=== PATIENT | female | born 1995 | race African-American/Black ===

== ENCOUNTER 2021-03-30 20:34 | Inpatient (IN) ==
[2021-03-30] MEDS ORDERED: SODIUM CHLORIDE 0.9% 1000ML 1,000 ML IV SCH (21:45)
[2021-03-30] MEDS ORDERED: MoRPHine SULFATE 4 MG/ML 1 ML CARP\\VIAL IV STA (21:45)
[2021-03-30] MEDS ORDERED: ONDANSETRON INJ 2 MG/ML 2 ML VIAL IV STA (21:45)
--- NOTE | 2021-03-30 21:49 | Emergency Department Note ---
History of Present Illness General Chief complaint: Sore Throat Stated complaint: SORE TONSIL,REDNESS,SWELLING,EAR ACHE Time Seen by Provider: 03/30/21 21:31 History of Present Illness Maximum Pain Intensity: 6 This is a 25-year-old female that presents to the emergency department via [employer] vehicle with complaints of "sore tonsil, redness, swelling, earache". The patient states that this past Thursday she began with redness to her right tonsil region. She states that she took ibuprofen to help with her pain. She has a history of tonsil stones and has been trying some warm salt water gargles but persistence of the edema continued. The patient notes that the area has been swelling more to a point where it is now painful to swallow. She also notes right ear pain. She denies any fevers, chills, nausea or vomiting. No pertinent past medical history, surgeries or allergies. She states this is strictly unilateral, right side of the throat. She has a history of peritonsillar abscess in December of this year and this was drained at [facility]. She states this feels similar. She denies any other pertinent past medical history, surgeries or allergies. Last dose of ibuprofen was at 6 PM and was 800 mg. Home Medications Medication Instructions Recorded Confirmed Type ibuprofen 800 mg tablet 800 mg PO Q6H PRN 03/30/21 03/30/21 History norgestimate 0.25 mg-ethinyl 1 tab PO QAM 03/30/21 03/30/21 History estradiol 35 mcg tablet (Milagro) Allergies Allergy/AdvReac Type Severity Reaction Status Date / Time No Known Allergies Allergy Unverified 03/30/21 20:51 Past Med/Surg History Medical History No pertinent past medical history Surgical History Hx of peritonsillar abscess drainage Social History Smoking Status: Never smoker Preferred Language: Burmese Feels Safe at Home: Yes Review of Systems A total of 10 systems reviewed and were otherwise negative Physical Exam Vital Signs Vital Signs - 24 hr 03/30/21 20:36 03/31/21 00:23 03/31/21 00:25 Temperature 37.3 C Temperature Source Temporal Artery Scan Pulse Rate 107 H 87 Pulse Rate [Finger] 90 Pulse Rhythm Regular Pulse Strength Normal Respiratory Rate 16 18 18 Respiratory Effort / Characteristics Non-Labored Respiratory Depth Normal Respiratory Pattern Regular Blood Pressure 133/86 Blood Pressure [Left Arm] 126/74 Blood Pressure Mean 101 Blood Pressure Mean [Left Arm] 91 Blood Pressure Position Sitting Blood Pressure Position [Left Arm] Pulse Oximetry 100 96 96 Oxygen Delivery Method Room Air Room Air Room Air Sepsis Recent Fever Within 48 Hours No Sepsis New/Unexplained Change in Mental Status No Sepsis Action Taken by Nursing No Action Required 03/31/21 06:15 Temperature Temperature Source Pulse Rate Pulse Rate [Finger] 75 Pulse Rhythm Pulse Strength Respiratory Rate 18 Respiratory Effort / Characteristics Respiratory Depth Respiratory Pattern Blood Pressure Blood Pressure [Left Arm] 122/76 Blood Pressure Mean Blood Pressure Mean [Left Arm] 91 Blood Pressure Position Blood Pressure Position [Left Arm] Lying Pulse Oximetry 97 Oxygen Delivery Method Room Air Sepsis Recent Fever Within 48 Hours Sepsis New/Unexplained Change in Mental Status Sepsis Action Taken by Nursing VITAL SIGNS - Vital signs and nursing notes were reviewed. Stable and afebrile. GENERAL - 25-year-old female appearing her stated age who is in no acute distress. Communicates well with provider and answers questions appropriately. SKIN - Without rashes. No meningeal or petechial rash. HEAD - NC/AT. EYES - PERRL with EOMI bilaterally. Sclera anicteric. EARS - No deformities of external structures noted on gross examination bilaterally. No pain elicited with palpation of the tragus bilaterally. External auditory canals without discharge or otorrhea. Tympanic membranes pearly kaur without retraction or bulging. No fluid or purulent material visualized behind the TM. Handle of malleus, umbo, cone of light, pars tensa/flaccid all easily visualized. NOSE - Midline and without cyanosis. No epistaxis or purulent drainage noted. Septum midline without deviation or septal hematoma noted. MOUTH/OROPHARYNX - Without perioral cyanosis. Buccal mucosa pink and moist and without leukoplakia. Tongue midline with equal elevation of palate bilaterally. There is 4+ right-sided tonsillar hypertrophy. Left tonsil 1+. Uvula is deviated to the left. Mild trismus. There is a mild muffled voice noted. No wheezing or stridor. There is edema/erythema involving the soft palate on the right, superior to the tonsil. NECK - Neck with FROM. Supple to palpation. Right greater than left anterior cervical lymphadenopathy noted. No nuchal rigidity. LUNGS - Chest wall symmetric without accessory muscle use, intercostals retractions, or central cyanosis. Normal vesicular breath sounds CTA B/L. No wheezes, rales, or rhonchi appreciated. CARDIAC - RRR with S1/S2. No murmur, rubs, or gallops appreciated. EXTREMITIES - No clubbing or peripheral cyanosis. +5/5 strength noted in UE/LE bilaterally. NEUROLOGIC - Cranial nerves II through XII grossly intact. PSYCH - A&O, and cooperates fully with examiner. Pt is very pleasant and interacts well with examiner. Course Administered Medications Sodium Chloride (Nss 1000ml) 1,000 mls @ 100 mls/hr IV .Q10H GUI Stop: 04/30/21 05:44 Last Admin: 03/31/21 06:01 Dose: 100 mls/hr Documented by: [id number] Discontinued Medications Dexamethasone Sodium Phosphate (DexamethasonePf 10 Mg/Ml Vial) 10 mg IV NOW ONE Stop: 03/31/21 00:05 Last Admin: 03/31/21 00:17 Dose: 10 mg Documented by: [id number] Sodium Chloride (Nss 1000ml) 1,000 mls @ 999 mls/hr IV .Q1H1M GUI Stop: 03/30/21 22:45 Last Infusion: 03/30/21 23:47 Dose: 0 mls/hr Documented by: [id number] Admin: 03/30/21 22:40 Dose: 999 mls/hr Documented by: [id number] Ceftriaxone Sodium (Rocephin) 1,000 mg in 50 mls @ 100 mls/hr IV NOW STA Stop: 03/31/21 00:33 Last Infusion: 03/31/21 00:59 Dose: 0 mls/hr Documented by: [id number] Admin: 03/31/21 00:17 Dose: 100 mls/hr Documented by: [id number] Ceftriaxone Sodium (Rocephin) 1,000 mg in 50 mls @ 100 mls/hr IV NOW STA Stop: 03/31/21 00:54 Last Infusion: 03/31/21 01:11 Dose: 0 mls/hr Documented by: [id number] Admin: 03/31/21 00:36 Dose: 100 mls/hr Documented by: [id number] Ioversol (Optiray 320 100ml) 94 ml IV ONCE ONE Stop: 03/30/21 23:22 Last Admin: 03/30/21 23:16 Dose: 94 ml Documented by: [id number] Morphine Sulfate (Morphine Sulfate 4 Mg/Ml 1 Ml Carp\\Vial) 4 mg IV NOW STA Stop: 03/30/21 21:46 Last Admin: 03/30/21 22:39 Dose: 4 mg Documented by: [id number] Ondansetron HCl (Ondansetron Inj 2 Mg/Ml 2 Ml Vial) 4 mg IV NOW STA Stop: 03/30/21 21:46 Last Admin: 03/30/21 22:39 Dose: 4 mg Documented by: [id number] Medical Decision Making Laboratory Data Result diagrams: 03/30/21 22:20 03/30/21 22:20 Lab Results 03/30/21 03/30/21 03/30/21 Range/Units 21:44 22:20 22:20 WBC 10.27 (4.8-10.8) K/uL RBC 4.77 (4.2-5.4) M/uL Hgb 11.4 L (12.0-16.0) g/dL Hct 35.6 L (37-47) % MCV 74.6 L (80-100) fL MCH 23.9 L (25-34) pg MCHC 32.0 (32-36) g/dL RDW Std Deviation 44.7 (36.4-46.3) fL RDW Coeff of Melissa 16.2 H (11.5-14.5) % Plt Count 336 (130-400) K/uL MPV 10.0 (7.4-10.4) fL Immature Gran % (Auto) 0.2 % Neut % (Auto) 61.5 % Lymph % (Auto) 23.9 % [place] % (Auto) 11.0 % Eos % (Auto) 3.2 % Baso % (Auto) 0.2 % Neut # (Auto) 6.32 (1.4-6.5) K/uL Lymph # (Auto) 2.45 (1.2-3.4) K/uL [place] # (Auto) 1.13 H (0.11-0.59) K/uL Eos # (Auto) 0.33 (0-0.5) K/uL Baso # (Auto) 0.02 (0-0.2) K/uL Immature Gran # (Auto) 0.02 (0.00-0.02) K/uL Sodium 139 (136-145) mmol/L Potassium 3.7 (3.5-5.1) mmol/L Chloride 105 (98-107) mmol/L Carbon Dioxide 28 (21-32) mmol/L Anion Gap 6.0 (3-11) BUN 9 (7-18) mg/dl Creatinine 0.76 (0.6-1.2) mg/dl Est Cr Clr Drug Dosing 103.0 ml/min Est GFR ( Amer) 124.6 ml/min Est GFR (Non-Af Amer) 107.5 ml/min BUN/Creatinine Ratio 11.4 (10-20) Glucose 94 (70-99) mg/dl Calcium 9.0 (8.5-10.1) mg/dl Total Bilirubin 0.2 (0.2-1) mg/dl AST 14 L (15-37) U/L ALT 23 (12-78) Alkaline Phosphatase 60 (45-117) U/L Total Protein 7.4 (6.4-8.2) gm/dl Albumin 3.1 L (3.4-5.0) gm/dl Globulin 4.3 H (2.5-4.0) gm/dl Albumin/Globulin Ratio 0.7 L (0.9-2) HCG, Qual (Negative) Monoscreen (Negative) SARS-CoV-2, RNA, NAAT (NEGATIVE) Group A Strep (PCR) DETECTED A (NotDetected) 03/30/21 03/30/21 Range/Units 22:20 22:32 WBC (4.8-10.8) K/uL RBC (4.2-5.4) M/uL Hgb (12.0-16.0) g/dL Hct (37-47) % MCV (80-100) fL MCH (25-34) pg MCHC (32-36) g/dL RDW Std Deviation (36.4-46.3) fL RDW Coeff of Melissa (11.5-14.5) % Plt Count (130-400) K/uL MPV (7.4-10.4) fL Immature Gran % (Auto) % Neut % (Auto) % Lymph % (Auto) % [place] % (Auto) % Eos % (Auto) % Baso % (Auto) % Neut # (Auto) (1.4-6.5) K/uL Lymph # (Auto) (1.2-3.4) K/uL [place] # (Auto) (0.11-0.59) K/uL Eos # (Auto) (0-0.5) K/uL Baso # (Auto) (0-0.2) K/uL Immature Gran # (Auto) (0.00-0.02) K/uL Sodium (136-145) mmol/L Potassium (3.5-5.1) mmol/L Chloride (98-107) mmol/L Carbon Dioxide (21-32) mmol/L Anion Gap (3-11) BUN (7-18) mg/dl Creatinine (0.6-1.2) mg/dl Est Cr Clr Drug Dosing ml/min Est GFR ( Amer) ml/min Est GFR (Non-Af Amer) ml/min BUN/Creatinine Ratio (10-20) Glucose (70-99) mg/dl Calcium (8.5-10.1) mg/dl Total Bilirubin (0.2-1) mg/dl AST (15-37) U/L ALT (12-78) Alkaline Phosphatase (45-117) U/L Total Protein (6.4-8.2) gm/dl Albumin (3.4-5.0) gm/dl Globulin (2.5-4.0) gm/dl Albumin/Globulin Ratio (0.9-2) HCG, Qual Negative (Negative) Monoscreen Negative (Negative) SARS-CoV-2, RNA, NAAT NEGATIVE (NEGATIVE) Group A Strep (PCR) (NotDetected) Imaging Data Radiologist's Impression: Soft Tissue Neck CT 03/30/21 21:51 CT soft tissue neck w con CLINICAL HISTORY: R tonsillar edema, concern for abscess . Sore throat and ear pain COMPARISON STUDY: No previous studies for comparison. CT DOSE: 358.10 mGy.cm TECHNIQUE: Standard CT of the Neck was performed with IV contrast. A dose lowering technique was utilized adhering to the principles of ALARA. Contrast Volume: Optiray 320, 94 ml FINDINGS: There is diffuse swelling of the tonsils bilaterally, right greater than left. There is a thick-walled enhancing abscess present of the right tonsil measuring 2.3 x 2.1 cm. There is mild encroachment upon the adjacent airway. Salivary glands: Parotid and submandibular salivary glands are within normal limits. The thyroid gland is also within normal limits. Lymph nodes: There are no pathologically enlarged lymph nodes. There is no evidence for soft tissue mass within the neck bilaterally. Airway: The remaining cervical airway is widely patent. The epiglottis and abel epiglottic folds are normal bilaterally. The vocal cords are symmetric bilaterally. Vascular structures: No gross vascular abnormalities are seen. Paranasal sinuses:There is mild mucosal thickening involving the floors of both maxillary antrum. The remaining imaged paranasal sinuses are clear. Osseous structures: No acute osseous abnormalities are identified. IMPRESSION: 1. CT confirms presence of a right tonsillar abscess with mild encroachment upon the adjacent cervical airway. 2. Chronic bilateral maxillary sinusitis. ACT 112: Negative or not required by law. Electronically signed by: Guillermo Whalen M.D. 03/30/2021 11:34 PM [facility] Narrative Patient was seen and evaluated as above in room A04. Review was performed of nursing notes and vital signs. A thorough history and physical examination was performed. Patient presents to us today with a sore throat, specifically involving the right side with edema, erythema of the right tonsil being 4+ with uvular deviation to the left. Left tonsil is mildly enlarged. There is soft palate involvement on the right. Mild trismus. No drooling. There is a mildly muffled voice. Options of care were discussed with the patient. IV access was established. Labs were drawn. She is medicated with IV fluids, IV morphine for pain, IV Zofran. Toradol was initially held as the patient did have ibuprofen just prior to arrival. CT scan was obtained of the soft tissue neck. Results as above. CT scan report per radiology reveals: "CT confirms presence of a right tonsillar abscess with mild encroachment upon the adjacent cervical airway". Labs reveal no leukocytosis. There is anemia noted with hemoglobin of 11.4. No emergent metabolic disturbance. [place] screen negative. Covid negative. Strep positive. With the patient having a history of peritonsillar abscess that was drained 2 months ago and this is feeling similar, paired with her clinical examination and CT scan findings I did find this reasonable to discussed this with the on-call ENT surgeon. The ED attending physician also evaluated the patient. Please refer to his documentation regarding conversation with the ENT specialist. At this time I do believe that the patient with the edema to the right tonsil, uvular deviation, and mild encroachment upon the adjacent cervical airway by CT imaging paired with clinical assessment, that further evaluation and management the inpatient setting is warranted. While here the patient was medicated with 2 g of IV Rocephin, 10 mg IV Decadron and IV fluids. Case discussed with the spitalist. Please refer to further documentation regarding her stay. Case was discussed with the attending physician. GCS: 15 In the evaluation and treatment of this patient the following differential diagnoses were entertained: Strep pharyngitis, viral pharyngitis, allergic rhinitis with post nasal drip, airway obstruction, head/neck neoplasias, GERD, peritonisllar abscess, epiglottitis, hjol-pkkd-tpc-mouth disease, herpes simplex, mononucleosis, pneumonia, retropharyngeal abscess, scarlet fever, among others. Impression & Plan Tonsillar abscess, Acute sore throat, Acute streptococcal tonsillitis Discharge Plan Visit Data Chief Complaint: Sore Throat Stated Complaint: SORE TONSIL,REDNESS,SWELLING,EAR ACHE ED Provider: Bhupinder Lim ED Midlevel Provider: Thomas Zuniga Discharge Problem: Tonsillar abscess, Acute sore throat, Acute streptococcal tonsillitis Patient Disposition: Admitted As Inpatient Condition: Good Forms Stand Alone Forms: My [employer] Prescriptions Prescriptions: No Action norgestimate-ethinyl estradiol [Milagro] 0.25-35 mg-mcg Tablet 1 tab PO QAM RF: 0 ibuprofen 800 mg Tablet 800 mg PO Q6H PRN (Reason: Pain) RF: 0 Referrals Referrals: PCP,NO [Primary Care Provider] -
[2021-03-30 22:36] LABS: Basophils # (auto) 0.02 K/uL (0-0.2); Basophils % (auto) 0.2 %; Eosinophils # (auto) 0.33 K/uL (0-0.5); Eosinophils % (auto) 3.2 %; Hematocrit (blood only) 35.6 % (37-47); Hemoglobin 11.4 g/dL (12.0-16.0); Immature Granulocytes # (auto) 0.02 K/uL (0.00-0.02); Immature Granulocytes % (auto) 0.2 %; Lymphocytes # (auto) 2.45 K/uL (1.2-3.4); Lymphocytes % (auto) 23.9 %; Mean Corpuscular Hemoglobin 23.9 pg (25-34); Mean Corpuscular Volume 74.6 fL (80-100); Monocytes # (auto) 1.13 K/uL (0.11-0.59); Neutrophils # (auto) 6.32 K/uL (1.4-6.5); Neutrophils % (auto) 61.5 %; Platelet Count 336 K/uL (130-400); RDW Coefficient of Variation 16.2 % (11.5-14.5); RDW Standard Deviation 44.7 fL (36.4-46.3); Red Blood Count 4.77 M/uL (4.2-5.4); White Blood Count 10.27 K/uL (4.8-10.8)
[2021-03-30 22:54] LABS: Albumin Level 3.1 gm/dl (3.4-5.0); BUN Creatinine Ratio 11.4 (10-20); Est GFR (African American) 124.6 ml/min; Est GFR (Non-African American) 107.5 ml/min; Potassium 3.7 mmol/L (3.5-5.1)
[2021-03-30 22:56] LABS: Albumin Globulin Ratio 0.7 (0.9-2); Bilirubin,Total 0.2 mg/dl (0.2-1); Globulin 4.3 gm/dl (2.5-4.0); Total Protein 7.4 gm/dl (6.4-8.2)
[2021-03-30 22:57] LABS: Monotest Negative (Negative); Pregnancy Test, Serum Negative (Negative)
[2021-03-30] MEDS ORDERED: OPTIRAY 320 100ml IV ONE (23:21)
--- NOTE | 2021-03-30 23:36 | CT Scan Report ---
CT soft tissue neck w con CLINICAL HISTORY: R tonsillar edema, concern for abscess . Sore throat and ear pain COMPARISON STUDY: No previous studies for comparison. CT DOSE: 358.10 mGy.cm TECHNIQUE: Standard CT of the Neck was performed with IV contrast. A dose lowering technique was ut ilized adhering to the principles of ALARA. Contrast Volume: Optiray 320, 94 ml FINDINGS: There is diffuse swelling of the tonsils bilaterally, right greater than left. There is a t hick-walled enhancing abscess present of the right tonsil measuring 2.3 x 2.1 cm. There is mild encro achment upon the adjacent airway. Salivary glands: Parotid and submandibular salivary glands are within normal limits. The thyroid gland is also within normal limits. Lymph nodes: There are no pathologically enlarged lymph nodes. There is no evidence for soft tissue mass within the neck bilaterally. Airway: The remaining cervical airway is widely patent. The epiglottis and aryepiglottic folds are n ormal bilaterally. The vocal cords are symmetric bilaterally. Vascular structures: No gross vascular abnormalities are seen. Paranasal sinuses:There is mild mucosal thickening involving the floors of both maxillary antrum. The remaining imaged paranasal sinuses are clear. Osseous structures: No acute osseous abnormalities are identified. IMPRESSION: 1. CT confirms presence of a right tonsillar abscess with mild encroachment upon the adjacent cervica l airway. 2. Chronic bilateral maxillary sinusitis. ACT 112: Negative or not required by law. Electronically signed by: Guillermo Whalen M.D. 03/30/2021 11:34 PM
[2021-03-31] MEDS ORDERED: cefTRIAXone SODIUM 1,000 MG/50 ML BAG IV STA ×2 (00:04→00:25)
[2021-03-31] MEDS ORDERED: dexAMETHasone**PF** 10 MG/ML VIAL IV ONE (00:04)
--- NOTE | 2021-03-31 00:04 | Emergency Department Note ---
ED Visit Note Physician Evaluation Note: I have personally evaluated and examined this patient. I agree with assessment and plan of Thomas Zuniga PA-C. Very pleasant 25-year-old female with no significant past medical history other than an episode 3 months ago when she had a tonsillar abscess that needed to be drained at [facility] followed by brief hospitalization. Patient states she was feeling well throughout the last few months until Thursday when she noted her throat started to get sore this had rapidly gotten worse over the last few days and she arrived for swelling of the right tonsil. Initially seen by Thomas who diagnosed patient with strep tonsillitis and a 2 cm right peritonsillar abscess via CT read by radiologist. I evaluated the patient and I will note that her tonsils are quite large and touching by visual exam, however she is tolerating secretions and breathing comfortably. By CT she does seem to have a patent airway from that perspective as well. She was given 2 g of IV Rocephin and 10 mg of IV Decadron. I discussed the case with the on-call ENT Dr. Jose Miguel Hagen who reviewed the scans and feels the abscess is too small for drainage at this time. Given the swelling on my examination I felt that monitoring patient throughout the night would be indicated. In the morning the patient was reevaluated and while she states she feels slightly better her tonsils do not look any bit improved. Given the degree of the swelling I discussed again with Dr Hagen (on the phone) who notes her read is an abscess of 7 to 8 mm and that it would not be drainable at this point. She feels there is no indication for her to evaluate the patient at bedside at this time. As ENT does not feel that this is a drainable abscess at this time, we will hospitalize the patient for IV antibiotics and steroids and further monitoring of her airway. Patient is comfortable with this plan. Bhupinder Lim MD
[2021-03-31] MEDS: SODIUM CHLORIDE 0.9% 1000ML 1,000 ML IV SCH ×2 (06:01→16:22)
--- NOTE | 2021-03-31 07:52 | History & Physical Report ---
Date of Service March 31, 2021 Assessment & Plan (1) Tonsillar abscess: Plan: Due to the patient's clinical history along with the performed and her physical exam findings she will be admitted to the hospital proceeding as follows: We will maintain the patient on antibiotics, however we will change her to Unasyn 3000 mg intravenously every 6 hours. We will continue intravenous Decadron at 4 mg IV every 6 hours We will continue hydration with IV fluids We will follow serial labs Analgesics will be provided Antiemetics will be provided As ENT has already reviewed the imaging performed by the emergency department and did not feel there was a drainable abscess at this time we will hold on a formal ENT consultation, however if patient demonstrates signs or symptoms of worsening tonsillar abscess or clinically deteriorates or if the patient does not clinically improve in a reasonable amount of time we will ask ENT for formal consultation At the present time the patient appears quite comfortable. There is no evidence of airway compromise. Additional recommendations will be forthcoming based on her clinical course as it unfolds We will use SCDs for DVT prevention. We will avoid chemical means for the present time until we are certain no procedures such as I&D of a tonsillar abscess will be required this admission Patient be a level 1 full code (2) Acute streptococcal tonsillitis: Plan: +Rapid strep in ER, tx as above (3) Anemia: Plan: Microcytic, mild f/u with PCP as outpt Plan: DVT proph-SCDs Dispo-admit to med/surg History of Present Illness Chief Complaint: "I have a sore throat" Primary Care Provider: NO PCP This is a 25-year-old female who resides in [place], [place] who is in [place] visiting some family. Patient notes that in December of this year she had a peritonsillar abscess that required drainage and this was performed at [facility] in [place]. Patient states she did not have any apparent complications from this procedure and was initially doing well up until her presentation at this time. Approximately 1 week ago the patient noted that her throat began to appear erythematous on the right side. She also noted some increased soreness of her throat on the right side She said she took some Motrin and also tried some salt water gargles but over the ensuing week her throat became more sore and painful. She also noted some dysphagia. She has not had any shortness of breath or fever. Because of her previous episode of a peritonsillar abscess being drained and the ongoing and worsening pain she felt that she should be evaluated in the emergency department. Today in the emergency department the patient did have labs and imaging which I independently reviewed. She did have a CT scan of the neck that showed diffuse swelling of the tonsils bilaterally however the right was noted to be greater than the left. The presence of a right tonsillar abscess with mild encroachment upon upon her airway was noted. This abscess was measured at approximately 2.3 x 2.1 cm. She was noted to have findings consistent with chronic bilateral maxillary sinusitis. The epiglottis appeared normal on the study. A CBC revealed white blood cell count was within normal range. Hemoglobin and hematocrit were 11.4 35.6. Platelet count was within normal range. Chemistry profile showed sodium, potassium, BUN, and creatinine were all within normal range. A test was negative. Patient was tested for Covid which was negative. A mono test was noted to be negative and patient was tested for group A strep which was positive. The treating emergency room physician did talk to Dr. Hagen of ENT who did not feel that there was any drainable abscess after her review of the CT scan. Thus far in the emergency department the patient has been given some intravenous fluids. She has been given 10 mg of intravenous Decadron. She has also been given antibiotics in the form of Rocephin. At the time of my interview she is resting comfortably in bed. She was not short of breath and she was in no distress. Allergies Allergy/AdvReac Type Severity Reaction Status Date / Time No Known Allergies Allergy Unverified 03/30/21 20:51 Home Medications Medication Instructions Recorded Confirmed Type ibuprofen 800 mg tablet 800 mg PO Q6H PRN 03/30/21 03/30/21 History norgestimate 0.25 mg-ethinyl 1 tab PO QAM 03/30/21 03/30/21 History estradiol 35 mcg tablet (Milagro) Past Med/Surg History Medical History (Updated 03/31/21 @ 14:59 by Monse Sosa MD) Anemia No pertinent past medical history Surgical History Hx of peritonsillar abscess drainage Family History Other Family history non-contributory Social History Smoking Status: Never smoker Second Hand Exposure: No; Do You Dip or Chew Tobacco: No; Tobacco Cessation Education Requested by Patient: No Hx Alcohol Use: No Hx Substance Use: No Preferred Language: Honduran Communication Ability: Effective Interventional Radiology Technologist Required: No Beliefs That Will Affect Care: None Current Living Situation: Alone Other Information That Helps Us Care for You: No Feels Safe at Home: Yes Safety Concerns: Feels Safe At This Time Assistive Devices: None Review of Systems Constitutional: no fever and no chills Eyes: no diplopia Ear, Nose, Mouth, Throat: as per Subjective / HPI, + sore throat and + dysp hagia; no ear pain Respiratory: no cough and no dyspnea Cardiovascular: no chest pain Gastrointestinal: no abdominal pain, no nausea and no vomiting Genitourinary: no dysuria Musculoskeletal: no back pain Integumentary: no rash Neurologic: no localized weakness Physical Exam Constitutional: well developed and well nourished; no acute distress Eyes: PERRL, conjunctivae normal, anicteric sclerae ENMT: Ears: no hearing impairment and no external ear abnormality Patient was noted to have bilateral tonsillar hypertrophy, however this appeared to be greater on the right. The tonsils were noted to be erythematous and inflamed, again greater on the right side. There not appear to be any purulence draining from her tonsils. There is no evidence of airway compromise as the tonsils did not touch in midline. There was no stridor or evidence of airway compromise. No trismus noted. No drooling noted. Neck: trachea midline No adenopathy. No nuchal rigidity. Respiratory: normal respiratory effort, lungs clear to auscultation Patient was not using accessory muscles to aid in respiration. She was able to maintain a normal conversation without becoming dyspneic. No stridor was appreciated. Cardiovascular: Rate/Rhythm: regular rate and regular rhythm Gastrointestinal (Abdomen): Soft, nontender, nondistended Musculoskeletal: No calf tenderness Skin: no rashes Neurologic: moves all extremities Psychiatric: A+Ox3, euthymic affect Results & Data Results & Data ([facility]) Vital Signs (Past 12 Hours) Vital Signs Temp Pulse Pulse Resp BP BP Pulse Ox 03/31/21 06:15 75 18 122/76 97 03/31/21 00:25 87 18 96 03/31/21 00:23 90 18 126/74 96 03/30/21 20:36 37.3 C 107 H 16 133/86 100 Laboratory Results 03/30/21 03/30/21 03/30/21 Range/Units 22:32 22:20 22:20 WBC (4.8-10.8) K/uL RBC (4.2-5.4) M/uL Hgb (12.0-16.0) g/dL Hct (37-47) % MCV (80-100) fL MCH (25-34) pg MCHC (32-36) g/dL RDW Std Deviation (36.4-46.3) fL RDW Coeff of Melissa (11.5-14.5) % Plt Count (130-400) K/uL MPV (7.4-10.4) fL Immature Gran % (Auto) % Neut % (Auto) % Lymph % (Auto) % [place] % (Auto) % Eos % (Auto) % Baso % (Auto) % Neut # (Auto) (1.4-6.5) K/uL Lymph # (Auto) (1.2-3.4) K/uL [place] # (Auto) (0.11-0.59) K/uL Eos # (Auto) (0-0.5) K/uL Baso # (Auto) (0-0.2) K/uL Immature Gran # (Auto) (0.00-0.02) K/uL Sodium 139 (136-145) mmol/L Potassium 3.7 (3.5-5.1) mmol/L Chloride 105 (98-107) mmol/L Carbon Dioxide 28 (21-32) mmol/L Anion Gap 6.0 (3-11) BUN 9 (7-18) mg/dl Creatinine 0.76 (0.6-1.2) mg/dl Est Cr Clr Drug Dosing 103.0 ml/min Est GFR ( Amer) 124.6 ml/min Est GFR (Non-Af Amer) 107.5 ml/min BUN/Creatinine Ratio 11.4 (10-20) Glucose 94 (70-99) mg/dl Calcium 9.0 (8.5-10.1) mg/dl Total Bilirubin 0.2 (0.2-1) mg/dl AST 14 L (15-37) U/L ALT 23 (12-78) Alkaline Phosphatase 60 (45-117) U/L Total Protein 7.4 (6.4-8.2) gm/dl Albumin 3.1 L (3.4-5.0) gm/dl Globulin 4.3 H (2.5-4.0) gm/dl Albumin/Globulin Ratio 0.7 L (0.9-2) HCG, Qual Negative (Negative) Monoscreen Negative (Negative) SARS-CoV-2, RNA, NAAT NEGATIVE (NEGATIVE) Group A Strep (PCR) (NotDetected) 03/30/21 03/30/21 Range/Units 22:20 21:44 WBC 10.27 (4.8-10.8) K/uL RBC 4.77 (4.2-5.4) M/uL Hgb 11.4 L (12.0-16.0) g/dL Hct 35.6 L (37-47) % MCV 74.6 L (80-100) fL MCH 23.9 L (25-34) pg MCHC 32.0 (32-36) g/dL RDW Std Deviation 44.7 (36.4-46.3) fL RDW Coeff of Melissa 16.2 H (11.5-14.5) % Plt Count 336 (130-400) K/uL MPV 10.0 (7.4-10.4) fL Immature Gran % (Auto) 0.2 % Neut % (Auto) 61.5 % Lymph % (Auto) 23.9 % Tompkins % (Auto) 11.0 % Eos % (Auto) 3.2 % Baso % (Auto) 0.2 % Neut # (Auto) 6.32 (1.4-6.5) K/uL Lymph # (Auto) 2.45 (1.2-3.4) K/uL Tom[place]kins # (Auto) 1.13 H (0.11-0.59) K/uL Eos # (Auto) 0.33 (0-0.5) K/uL Baso # (Auto) 0.02 (0-0.2) K/uL Immature Gran # (Auto) 0.02 (0.00-0.02) K/uL Sodium (136-145) mmol/L Potassium (3.5-5.1) mmol/L Chloride (98-107) mmol/L Carbon Dioxide (21-32) mmol/L Anion Gap (3-11) BUN (7-18) mg/dl Creatinine (0.6-1.2) mg/dl Est Cr Clr Drug Dosing ml/min Est GFR ( Amer) ml/min Est GFR (Non-Af Amer) ml/min BUN/Creatinine Ratio (10-20) Glucose (70-99) mg/dl Calcium (8.5-10.1) mg/dl Total Bilirubin (0.2-1) mg/dl AST (15-37) U/L ALT (12-78) Alkaline Phosphatase (45-117) U/L Total Protein (6.4-8.2) gm/dl Albumin (3.4-5.0) gm/dl Globulin (2.5-4.0) gm/dl Albumin/Globulin Ratio (0.9-2) HCG, Qual (Negative) Monoscreen (Negative) SARS-CoV-2, RNA, NAAT (NEGATIVE) Group A Strep (PCR) DETECTED A (NotDetected) Diagnostic Findings Soft Tissue Neck CT 03/30/21 21:51 CT soft tissue neck w con CLINICAL HISTORY: R tonsillar edema, concern for abscess . Sore throat and ear pain COMPARISON STUDY: No previous studies for comparison. CT DOSE: 358.10 mGy.cm TECHNIQUE: Standard CT of the Neck was performed with IV contrast. A dose lowering technique was utilized adhering to the principles of ALARA. Contrast Volume: Optiray 320, 94 ml FINDINGS: There is diffuse swelling of the tonsils bilaterally, right greater than left. There is a thick-walled enhancing abscess present of the right tonsil measuring 2.3 x 2.1 cm. There is mild encroachment upon the adjacent airway. Salivary glands: Parotid and submandibular salivary glands are within normal limits. The thyroid gland is also within normal limits. Lymph nodes: There are no pathologically enlarged lymph nodes. There is no evidence for soft tissue mass within the neck bilaterally. Airway: The remaining cervical airway is widely patent. The epiglottis and aryepiglottic folds are normal bilaterally. The vocal cords are symmetric bilaterally. Vascular structures: No gross vascular abnormalities are seen. Paranasal sinuses:There is mild mucosal thickening involving the floors of both maxillary antrum. The remaining imaged paranasal sinuses are clear. Osseous structures: No acute osseous abnormalities are identified. IMPRESSION: 1. CT confirms presence of a right tonsillar abscess with mild encroachment upon the adjacent cervical airway. 2. Chronic bilateral maxillary sinusitis. ACT 112: Negative or not required by law. Electronically signed by: Guillermo Whalen M.D. 03/30/2021 11:34 PM Code Status & VTE Plan VTE Prophylaxis Plan VTE Prophylaxis will be ordered: Yes Supervising Physician Co-Signing Physician Notes PA Supervision Note: I personally saw and examined the patient. I verified all ruelas points and agree with PA Horseheads with the following exceptions and/or additions: Pt is a 25 yo healthy female with a h/o previous FLOWER PICKER 3 months ago who presents with worsening sore throat and difficulty swallowing, no fevers. FOund to have Strep throat and right FLOWER PICKER on CT in ER. Labs otehrwise unremarkable except chronic appearing anemia History and ROS reviewed-had right ear pain as well, no diarrhea or abd pains, no CP or SOB Vitals reviewed NAD, AAOx3 anicteric sclerae, Right TM normal appearing, posterior OP with R>>L tonsillar hypertrophy with uvula touching tonsil, mild muffled voice Neck +mild TTP over right anterior cervical KEON shotty, supple CTAB no wcr RRR no mgr Abd +BS soft NT Ext no edema Skin no rashes Labs and Rads images personally reviewed by me A/P: 25 yo female here with right FLOWER PICKER, Step pharyngitis -continue IV abx, Decadron hopeful that can be discharged to home tomrorow on po Augmentin and po Medrol dose pack with close outpt f/u with ENT in [facility] where she lives and was seen previously with her last FLOWER PICKER -needs outpt f/u on anemia PG Care Time/CCT Total # of Minutes Spent Total Time Spent with Patient: Total time spent is greater than 50% in coordination of care (as documented) at patient's floor/unit and/or counseling patient: Coding Level of Care Code 96281 Initial Inpt Care Lvl 3 Diagnoses Tonsillar abscess J36 Acute streptococcal tonsillitis J03.00 Anemia D64.9
[2021-03-31] MEDS ORDERED: ONDANSETRON INJ 2 MG/ML 2 ML VIAL IV PRN (10:11)
[2021-03-31] MEDS ORDERED: KETOROLAC TROMETHAMINE 15 MG/ML VIAL IV PRN (10:11)
[2021-03-31] MEDS ORDERED: ACETAMINOPHEN 1,000 MG/100 ML VIAL IV PRN (10:11)
[2021-03-31] MEDS: dexAMETHasone 4 MG in SYRINGE 0 ML IV SCH ×3 (10:59→22:29)
[2021-03-31] MEDS: NORGESTIMATE/ETHINYL ESTRAD 0.25/0.035MG DSPK PO SCH (10:59)
[2021-03-31] MEDS: AMPICILLIN/SULBACTAM SOD 3,000 MG in 0.9 % SODIUM CHLORIDE 100 ML IV SCH ×3 (10:59→22:30)
[2021-04-01] MEDS: SODIUM CHLORIDE 0.9% 1000ML 1,000 ML IV SCH (02:19)
[2021-04-01] MEDS: dexAMETHasone 4 MG in SYRINGE 0 ML IV SCH ×2 (04:01→10:42)
[2021-04-01] MEDS: AMPICILLIN/SULBACTAM SOD 3,000 MG in 0.9 % SODIUM CHLORIDE 100 ML IV SCH (04:01)
[2021-04-01 06:50] LABS: Basophils # (auto) 0.01 K/uL (0-0.2); Basophils % (auto) 0.1 %; Hematocrit (blood only) 35.7 % (37-47); Hemoglobin 11.5 g/dL (12.0-16.0); Immature Granulocytes # (auto) 0.07 K/uL (0.00-0.02); Immature Granulocytes % (auto) 0.5 %; Lymphocytes # (auto) 1.46 K/uL (1.2-3.4); Lymphocytes % (auto) 9.6 %; Mean Corpuscular Hemoglobin 23.5 pg (25-34); Mean Corpuscular Hgb Conc 32.2 g/dL (32-36); Mean Platelet Volume 9.9 fL (7.4-10.4); Monocytes % (auto) 2.6 %; Neutrophils # (auto) 13.24 K/uL (1.4-6.5); Neutrophils % (auto) 87.2 %; Platelet Count 299 K/uL (130-400); RDW Coefficient of Variation 16.1 % (11.5-14.5); RDW Standard Deviation 43.4 fL (36.4-46.3); Red Blood Count 4.89 M/uL (4.2-5.4); White Blood Count 15.18 K/uL (4.8-10.8)
[2021-04-01 07:21] LABS: BUN Creatinine Ratio 7.5 (10-20); Calcium 8.9 mg/dl (8.5-10.1); Creatinine Clr Calc Pharmacy 108.8 ml/min; Est GFR (Non-African American) 114.8 ml/min; Potassium 3.8 mmol/L (3.5-5.1)
[2021-04-01] MEDS: NORGESTIMATE/ETHINYL ESTRAD 0.25/0.035MG DSPK PO SCH (09:27)
--- NOTE | 2021-04-01 13:02 | Discharge Summary ---
Date of Service April 01, 2021 Admission HPI Per Admitting Provider This is a 25-year-old female who resides in [place], [place] who is in [place] visiting some family. Patient notes that in December of this year she had a peritonsillar abscess that required drainage and this was performed at [facility] in [place]. Patient states she did not have any apparent complications from this procedure and was initially doing well up until her presentation at this time. Approximately 1 week ago the patient noted that her throat began to appear erythematous on the right side. She also noted some increased soreness of her throat on the right side She said she took some Motrin and also tried some salt water gargles but over the ensuing week her throat became more sore and painful. She also noted some dysphagia. She has not had any shortness of breath or fever. Because of her previous episode of a peritonsillar abscess being drained and the ongoing and worsening pain she felt that she should be evaluated in the emergency department. Today in the emergency department the patient did have labs and imaging which I independently reviewed. She did have a CT scan of the neck that showed diffuse swelling of the tonsils bilaterally however the right was noted to be greater than the left. The presence of a right tonsillar abscess with mild encroachment upon upon her airway was noted. This abscess was measured at approximately 2.3 x 2.1 cm. She was noted to have findings consistent with chronic bilateral maxillary sinusitis. The epiglottis appeared normal on the study. A CBC revealed white blood cell count was within normal range. Hemoglobin and hematocrit were 11.4 35.6. Platelet count was within normal range. Chemistry profile showed sodium, potassium, BUN, and creatinine were all within normal range. A test was negative. Patient was tested for Covid which was negative. A mono test was noted to be negative and patient was tested for group A strep which was positive. The treating emergency room physician did talk to Dr. Hagen of ENT who did not feel that there was any drainable abscess after her review of the CT scan. Thus far in the emergency department the patient has been given some intravenous fluids. She has been given 10 mg of intravenous Decadron. She has also been given antibiotics in the form of Rocephin. At the time of my interview she is resting comfortably in bed. She was not shor t of breath and she was in no distress. Principal Diagnosis Streptococcal pharyngitis with peritonsillar abscess Discharge Exam Constitutional WD/WN, vitals as above Eyes + anicteric sclerae ENMT Right tonsil enlarged with uvula touching but swelling much improved from previous, mild erythema, no exudate, airway widely patent Neck trachea midline, no thyromegaly (mild right sided cervical KEON palpable, nontender) Respiratory normal respiratory effort, lungs clear to auscultation Cardiovascular RRR, no murmur, no edema Chest (Breasts) Chest: normal inspection of chest Gastrointestinal (Abdomen) normal bowel sounds, soft, nontender, no hepatosplenomegaly Musculoskeletal Extremities: extremities normal to inspection; no cyanosis and no clubbing Skin no rashes, warm and dry Neurologic moves all extremities and awake; no focal motor deficits Psychiatric A+Ox3, euthymic affect Lymphatic no lymphedema Discharge Data Allergies Allergy/AdvReac Type Severity Reaction Status Date / Time No Known Allergies Allergy Unverified 03/30/21 20:51 Consultations 03/31/21 07:30 ED Decision to Admit Stat Ordered Studies 03/30/21 21:51 CT soft tissue neck w con Stat Laboratory Results WBC 15.18 K/uL (4.8-10.8) H 04/01/21 06:35 RBC 4.89 M/uL (4.2-5.4) 04/01/21 06:35 Hgb 11.5 g/dL (12.0-16.0) L 04/01/21 06:35 Hct 35.7 % (37-47) L 04/01/21 06:35 MCV 73.0 fL (80-100) L 04/01/21 06:35 MCH 23.5 pg (25-34) L 04/01/21 06:35 MCHC 32.2 g/dL (32-36) 04/01/21 06:35 RDW Std Deviation 43.4 fL (36.4-46.3) 04/01/21 06:35 RDW Coeff of Melissa 16.1 % (11.5-14.5) H 04/01/21 06:35 Plt Count 299 K/uL (130-400) 04/01/21 06:35 MPV 9.9 fL (7.4-10.4) 04/01/21 06:35 Immature Gran % (Auto) 0.5 % 04/01/21 06:35 Neut % (Auto) 87.2 % 04/01/21 06:35 Lymph % (Auto) 9.6 % 04/01/21 06:35 [place] % (Auto) 2.6 % 04/01/21 06:35 Eos % (Auto) 0.0 % 04/01/21 06:35 Baso % (Auto) 0.1 % 04/01/21 06:35 Neut # (Auto) 13.24 K/uL (1.4-6.5) H 04/01/21 06:35 Lymph # (Auto) 1.46 K/uL (1.2-3.4) 04/01/21 06:35 [place] # (Auto) 0.40 K/uL (0.11-0.59) 04/01/21 06:35 Eos # (Auto) 0.00 K/uL (0-0.5) 04/01/21 06:35 Baso # (Auto) 0.01 K/uL (0-0.2) 04/01/21 06:35 Immature Gran # (Auto) 0.07 K/uL (0.00-0.02) H 04/01/21 06:35 Sodium 138 mmol/L (136-145) 04/01/21 06:35 Potassium 3.8 mmol/L (3.5-5.1) 04/01/21 06:35 Chloride 108 mmol/L (98-107) H 04/01/21 06:35 Carbon Dioxide 25 mmol/L (21-32) 04/01/21 06:35 Anion Gap 5.0 (3-11) 04/01/21 06:35 BUN 5 mg/dl (7-18) L 04/01/21 06:35 Creatinine 0.72 mg/dl (0.6-1.2) 04/01/21 06:35 Est Cr Clr Drug Dosing 108.8 ml/min 04/01/21 06:35 Est GFR ( Amer) 133.0 ml/min 04/01/21 06:35 Est GFR (Non-Af Amer) 114.8 ml/min 04/01/21 06:35 BUN/Creatinine Ratio 7.5 (10-20) L 04/01/21 06:35 Glucose 168 mg/dl (70-99) H 04/01/21 06:35 Calcium 8.9 mg/dl (8.5-10.1) 04/01/21 06:35 Total Bilirubin 0.2 mg/dl (0.2-1) 03/30/21 22:20 AST 14 U/L (15-37) L 03/30/21 22:20 ALT 23 (12-78) 03/30/21 22:20 Alkaline Phosphatase 60 U/L (45-117) 03/30/21 22:20 Total Protein 7.4 gm/dl (6.4-8.2) 03/30/21 22:20 Albumin 3.1 gm/dl (3.4-5.0) L 03/30/21 22:20 Globulin 4.3 gm/dl (2.5-4.0) H 03/30/21 22:20 Albumin/Globulin Ratio 0.7 (0.9-2) L 03/30/21 22:20 HCG, Qual Negative (Negative) 03/30/21 22:20 Monoscreen Negative (Negative) 03/30/21 22:20 SARS-CoV-2, RNA, NAAT NEGATIVE (NEGATIVE) 03/30/21 22:32 Group A Strep (PCR) DETECTED (NotDetected) A 03/30/21 21:44 Impressions Soft Tissue Neck CT 03/30/21 21:51 CT soft tissue neck w con CLINICAL HISTORY: R tonsillar edema, concern for abscess . Sore throat and ear pain COMPARISON STUDY: No previous studies for comparison. CT DOSE: 358.10 mGy.cm TECHNIQUE: Standard CT of the Neck was performed with IV contrast. A dose lowering technique was utilized adhering to the principles of ALARA. Contrast Volume: Optiray 320, 94 ml FINDINGS: There is diffuse swelling of the tonsils bilaterally, right greater than left. There is a thick-walled enhancing abscess present of the right tonsil measuring 2.3 x 2.1 cm. There is mild encroachment upon the adjacent airway. Salivary glands: Parotid and submandibular salivary glands are within normal limits. The thyroid gland is also within normal limits. Lymph nodes: There are no pathologically enlarged lymph nodes. There is no evidence for soft tissue mass within the neck bilaterally. Airway: The remaining cervical airway is widely patent. The epiglottis and aryepiglottic folds are normal bilaterally. The vocal cords are symmetric bilaterally. Vascular structures: No gross vascular abnormalities are seen. Paranasal sinuses:There is mild mucosal thickening involving the floors of both maxillary antrum. The remaining imaged paranasal sinuses are clear. Osseous structures: No acute osseous abnormalities are identified. IMPRESSION: 1. CT confirms presence of a right tonsillar abscess with mild encroachment upon the adjacent cervical airway. 2. Chronic bilateral maxillary sinusitis. ACT 112: Negative or not required by law. Electronically signed by: Guillermo Whalen M.D. 03/30/2021 11:34 PM Hospital Course (1) Tonsillar abscess: As ENT has already reviewed the imaging performed by the emergency department and did not feel there was a drainable abscess at this time we will hold on a formal ENT consultation At the present time the patient appears quite comfortable. There is no evidence of airway compromise. Admitted and given IVFs, IV Unasyn 3000 mg intravenously every 6 hours, and IV Decadron Pain, swelling of throat/tonsils much improved by the next day Able to swallow, tolerating full liquids diet without difficulty, remains afebrile WBC count 15k on day of dc due to steroid use Stable for dc to home with po Augmentin x 8 more days, Medrol dose pack, and she will f/u with PCP and ENT in [place]. Tylenol prn pain (2) Acute streptococcal tonsillitis: +Rapid strep in ER, tx as above (3) Anemia: Microcytic, mild f/u with PCP as outpt DVT proph-SCDs Dispo-stable for dc to home Total Time Total Time Spent Total Time Spent (In Minutes): 35 min Discharge Plan Discharge Items Patient Disposition: Home - Self-Care Reason For Visit: TONSILLAR ABSCESS Discharge Diagnosis: Peritonsillar abscess Condition on Discharge: Good Activity: Resume your previous activity Non-emergency contact: Primary Care Provider Call non-emergency contact if: you have any medication questions, your symptoms worsen, your pain is not controlled and you have a fever Follow-up/Referrals: PCP,NO [Primary Care Provider] - Diet: Regular Diet Texture: Dental soft (bite-sized) Addtl Attending Provider Instructions: Please continue the antibiotic called Augmentin twice a day x 8 more days for your tonsil infection. You should also continue to take the steroid in the form of a Medrol Dose pack to reduce swelling. You can take Tylenol as needed for pain. Please follow up with your PCP in [place] and get a referral back to the ENT Surgeon within the week. If your pain worsens or you have difficulty breathing, please return to the hospital. Of note, you were found to be slightly anemic here (low hemoglobin/red blood cells). Follow up with your primary care doctor concerning this. Pending Studies at Discharge: No Stand-Alone Forms: My [facility] [address] Medications and DC Order Prescriptions: New amoxicillin-pot clavulanate [Augmentin] 875-125 mg tablet 1 tab PO BID Qty: 16 RF: 0 methylprednisolone [Medrol (Irving)] 4 mg tablets,dose pack See Rx Instructions .ROUTE .COMPLEX Qty: 21 RF: 0 Continued norgestimate-ethinyl estradiol [Milagro] 0.25-35 mg-mcg Tablet 1 tab PO QAM RF: 0 Discontinued ibuprofen 800 mg Tablet 800 mg PO Q6H PRN (Reason: Pain) RF: 0 Discharge Orders: Discharge Order (Routine); Ordered 04/01/21 Ordered By: Monse Sosa Admission Data Admit Date/Time: 03/31/21 07:59 Attending Provider: Monse Sosa Admit Provider: Noel Saleem Primary Care Provider: PCP,NO Other Providers: Monse Sosa Coding Level of Care Code D/C DAY MANAGEMENT >30 MINS Diagnoses Tonsillar abscess J36 Acute streptococcal tonsillitis J03.00 Anemia D64.9
== END 2021-04-01 14:34 | disposition home or self-care (01) | DRG 153 ==
LOC: ED 20:34 → EDINP 03-31 07:59 → 3N 03-31 17:00